=== PATIENT | female | born 1965 | race Caucasian/White ===

== ENCOUNTER 2017-09-27 14:18 | Emergency (ER) | payer MEDICAID, OTHER ==
[~2017-09-27] VITALS: Ht 167.6 cm; Wt 99.8 kg
[2017-09-27] MEDS ORDERED: cloNIDine HCL 0.1 MG TAB ONE (14:37)
[2017-09-27] MEDS ORDERED: cloNIDine HCL 0.1 MG TAB PO ONE (14:45)
[2017-09-27 15:06] LABS: Eosinophils # (auto) 0.1 uL; Monocytes # (auto) 0.5 uL; Neutrophils # (auto) 4.3 uL; Platelet Count (auto) 132 10^3/uL (140-450)
[2017-09-27 15:07] LABS: Basophils # (auto) 0 uL; Basophils % (auto) 0.7 % (0.0-2.0); Eosinophils % (auto) 2.1 % (0.0-7.0); Hematocrit 39.7 % (36.0-46.0); Hemoglobin 13.9 g/dL (12.2-16.2); Lymphocytes % (auto) 16.3 % (10.0-50.0); Mean Corpuscular Hemoglobin 37.4 pg (28.0-32.0); Mean Corpuscular Hgb Conc. 34.9 g/dL (32.0-36.0); Mean Corpuscular Volume 107.3 fL (80.0-100.0); Monocytes % (auto) 8.2 % (0.0-12.0); Neutrophils % (auto) 72.7 % (37.0-80.0); Nucleated Red Blood Cells % 0.2 %; Red Cell Distribution Width 18.7 % (11.8-14.3)
[2017-09-27 15:28] LABS: Alanine Aminotransferase 28 U/L (13-56); Albumin 3.5 g/dL (3.4-5.0); Alkaline Phosphatase 232 U/L (45-117); Amylase 32 U/L (25-115); Anion Gap 7 (5-15); Aspartate Aminotransferase 55 U/L (15-37); BUN/Creatinine Ratio 9.3; Bilirubin, Total 2.2 mg/dL (0.2-1.0); Blood Alcohol < 3.0 mg/dL (0-5); Blood Urea Nitrogen 10 mg/dL (7-18); Calcium 8.2 mg/dL (8.5-10.1); Carbon Dioxide 30 mmol/L (21-32); Chloride 101 mmol/L (98-107); GFR African American 69 mL/min; GFR Non-African American 57 mL/min; Glucose 124 mg/dL (74-106); Lipase 134 U/L (73-393); Potassium 3.4 mmol/L (3.5-5.1); Sodium 138 mmol/L (136-145); Total Protein 7.3 g/dL (6.4-8.2)
[2017-09-27 17:03] LABS: Urine Bacteria NONE SEEN /hpf (None Seen); Urine Blood Negative /uL (Negative); Urine Mucus MODERATE (None Seen); Urine Specific Gravity 1.035 (1.001-1.035); Urine WBC 4 /hpf (0 - 5)
[2017-09-27 17:24] LABS: Amphetamine Screen, Urine NEGATIVE (NEGATIVE); Barbiturate Scree,Urine NEGATIVE (NEGATIVE); Benzodiazephine Screen, Urine NEGATIVE (NEGATIVE); Cannabinoid Screen, Urine NEGATIVE (NEGATIVE); Cocaine Screen, Urine NEGATIVE (NEGATIVE); Opiate Scree,Urine NEGATIVE (NEGATIVE); Phencyclidine Screen, Urine NEGATIVE (NEGATIVE)
[2017-09-27] MEDS ORDERED: SODIUM CHLORIDE 0.9% 1,000 ML IV ONE (17:45)
[2017-09-27 19:01] VITALS: BP 163/102
== END 2017-09-27 18:09 | disposition home or self-care (01) ==
LOC: ER 14:19
DX: E86.0 Dehydration (principal); R53.1 Weakness; Z90.49 Acquired absence of other specified parts of digestive tract
CPT/HCPCS: 36415; 74176; 80053; 80307; 80320; 81001; 82150; 83690; 84484; 85025; 93005; 96360; 99285; J7030